=== PATIENT | male | born 1980 | race Caucasian/White ===

== ENCOUNTER 2023-02-28 07:23 | Emergency (ER) | payer OTHER | END 2023-02-28 10:10 | disposition home or self-care (01) | LOC: MW.ED 07:23 | DX: S46.912A Strain of unspecified muscle, fascia and tendon at shoulder and upper arm level, left arm, initial encounter (principal); S19.9XXA Unspecified injury of neck, initial encounter; M25.552 Pain in left hip; V47.5XXA Car driver injured in collision with fixed or stationary object in traffic accident, initial encounter; Y92.410 Unspecified street and highway as the place of occurrence of the external cause | CPT/HCPCS: 72125; 72125-26; 99283; 99284 ==